=== PATIENT | male | born 1960 | race Caucasian/White ===

== ENCOUNTER → 2017-08-26 | Outpatient (CLI) | payer OTHER | LOC: BMCIMAGING 10:11 | PROVIDERS: ATTEND Emergency Medicine | DX: M50.322 Other cervical disc degeneration at C5-C6 level (principal); M99.71 Connective tissue and disc stenosis of intervertebral foramina of cervical region; M12.88 Other specific arthropathies, not elsewhere classified, other specified site ==

== ENCOUNTER 2017-09-07 11:15 | Emergency (ER) | payer OTHER ==
[2017-09-07 11:24] VITALS: TEMP 98.1
--- NOTE | 2017-09-07 11:41 | CPEKG ---
Heart Rate: 64 RR Interval: 938 P-R Interval: 152 QRSD Interval: 82 QT Interval: 396 QTC Interval: 409 P [place]: 8 QRS [place]: 7 T Wave [place]: 31 EKG Severity - OTHERWISE NORMAL ECG - EKG Impression: SINUS RHYTHM EKG Impression: MINIMAL ST ELEVATION, ANTERIOR LEADS Electronically Signed By: Christina Hoover 07-Sep-2017 14:58:41
--- NOTE | 2017-09-07 11:41 | CPEKG ---
Heart Rate: 64 RR Interval: 938 P-R Interval: 152 QRSD Interval: 82 QT Interval: 396 QTC Interval: 409 P [place]: 8 QRS [place]: 7 T Wave [place]: 31 EKG Severity - OTHERWISE NORMAL ECG - EKG Impression: SINUS RHYTHM EKG Impression: MINIMAL ST ELEVATION, ANTERIOR LEADS Electronically Signed By: Christina Hoover 07-Sep-2017 14:58:41
[2017-09-07 12:37] LABS: PLATELET COUNT 286 10^3/uL (150-400)
[2017-09-07] MEDS ORDERED: NS 1,000 ML IV ONE ×2 (13:17)
[2017-09-07] MEDS ORDERED: ONDANSETRON 4 MG/2 ML VIAL IVP ONE ×2 (13:17)
[2017-09-07] MEDS ORDERED: HYDROmorphONE/DILAUDID 1 MG/ML INJ IVP ONE ×2 (13:18)
--- NOTE | 2017-09-07 13:20 | EDPHY ---
HPI/HX/ROS/PE/MDM Narrative: CHIEF COMPLAINT: Headache, nausea, anxiety HISTORY OF PRESENT ILLNESS: This patient is a 56 year old male with history of recent C6-C7 pain complaining of headache and nausea onset early this morning upon waking. Two weeks ago, he woke up in bed with terrible pain in his neck. This radiates ( "zings") down his right arm multiple times per minute: initially to the elbow, now in the last few days to his fingers. He was diagnosed with a ruptured disc at C6-C7 by MRI. Followed by Dr. Sarmiento, professor of physical education, and Dr. Monet, neurosurgeon. He has noted he has been hypertensive since the incident. He has not been able to sleep well, and has felt "wound up" and more emotionally sensitive during this time. This morning, he developed a headache around 4:30am, primarily in the front and around his eyes. He noted building anxiety, lightheadedness, and nausea. He has had multiple new medications recently including gabapentin, lidocaine patches, Vicodin, and Medrol Dosepak. He took two ibuprofen this morning which relieved his headache slightly, but it has now returned. He followed up for an appointment with Dr. Monet but continued to feel very lightheaded and took a wheelchair to the emergency department. He denies any chest pain or shortness of breath. No speech difficulty, no numbness or weakness in extremities. He endorses a cough over the last two weeks. No fever, chills, chest pain, shortness of breath, palpitations, vomiting, diarrhea, urinary complaints. He has noted ongoing elevated blood pressures for the last 2 weeks and had a blood pressure of 200 systolic all in his physician's office. REVIEW OF SYSTEMS: Aside from elements discussed in the HPI, a comprehensive 10-point review of systems was reviewed and is negative. PAST MEDICAL HISTORY: Hyperlipidemia (Crestor), occasional irregular heartbeat , chronic urticaria. SOCIAL HISTORY: . at bedside. Lives in [place]. VITAL SIGNS: Reviewed by me. BP 201/111 GENERAL: Well-developed, well-nourished, resting comfortably in no respiratory distress. HEENT: Atraumatic. Eyes: No icterus, no injection. Mouth: moist mucous membranes. No erythema or lesions. Neck: tenderness to lower c-spine, more right-sided than midline. LUNGS: Clear to auscultation bilaterally, no wheezes, rhonchi or rales. CARDIAC: Regular rate and rhythm, no rubs, murmurs or gallops. ABDOMEN: Soft, nontender, nondistended, bowel sounds normal. BACK: No CVA tenderness. EXTREMITIES: No trauma. No edema. Range of motion is normal throughout. NEURO: Alert and oriented, cranial nerves are intact throughout, normal motor, normal sensation. SKIN: Warm and dry, no rash. PSYCHIATRIC: Normal mentation, emotionally labile. Patient burst into tears when I finished my exam. Portions of this note were transcribed by a medical corps officer. I personally performed a history, physical exam, medical decision making, and confirmed accuracy of information the transcribed note. ED Course: 12-LEAD EKG: Please see the full report in [facility]. My interpretation: Sinus rhythm, rate 64. Questionable ST T minimal elevations anteriorly 56 y/o male presents with headache, nausea, and anxiety this morning following neck pain ongoing for the last two weeks. He denies history of hypertension, but has been hypertensive since the incident. Exam reveals low c-spine tenderness right of midline. He is neurologically intact. IV established. Plan for labs including CBC, chemistries, Troponin. Plan to administer 1mg IV Dilaudid, 4mg IV Zofran, and 1L IV NS for symptom relief. Plan for EKG and chest x-ray. Chest x-ray negative for acute processes. Troponin negative. EKG shows sinus rhythm. Patient is initially elevated blood pressure did trend downward during his emergency department course. It was somewhat labile with readings as low as 140 is a over 80s. Headache was treated with pain meds and Zofran. Patient feels that a significant component of his illness is his insomnia is been going on since the last 2 weeks. I do not believe the patient is having hypertensive emergency or urgency. He has no evidence of end-organ damage on his EKG, troponin, or lab evaluation. I do not believe he needs CT scan his head. His symptoms may be related to medication side effect. 14:51 Reassessed patient. Headache and nausea have resolved. He feels much less anxious. His dizziness remains, but he believes this is related to narcotic medications. I discussed medication options in detail with the patient and his including his pain regimen, a sleep aid, or antihypertensive. Since the patient has only been hypertensive since the onset of his neck pain, plan to consult with his primary care physician, Dr. Rose, regarding his medications. He knows to follow up with her as well as his professor of physical education for continued evaluation and care. He plans to receive an injection rather than undergo surgery at this time. 15:[address] Patel, inspector outside steam distribution for Dr. Rose. She saw the patient last week as well. His blood pressure was elevated in clinic at that time, so she recommends he begin Zestoretic (lisinopril/HCTZ). Reassessed patient. He continues to feel improved. Plan to discharge home in good condition with prescription for Zestoretic and Ativan. Follow up and return precautions discussed. The patient and his are comfortable with this plan. MDM: Differential diagnosis for the patient's hypertension was considered including but not limited to essential hypertension, pain, medication effect, anxiety, intracranial pathology. After history was obtained, and the physical exam performed, a differential for headache was considered including, but not limited to, subarachnoid hemorrhage, migraine headache, tension headache. - Data Points Imaging: I viewed and interpreted images myself Laboratory Results: Laboratory Results 09/07/17 12:22 09/07/17 12:22 Medications Given: Discontinued Medications Acetaminophen (Tylenol) 650 mg PO EDNOW ONE Stop: 09/07/17 15:34 Last Admin: 09/07/17 15:42 Dose: 650 mg Hydrocodone Bitart/Acetaminophen ([place] 5/325) 1 tab PO EDNOW ONE Stop: 09/07/17 15:33 Last Admin: 09/07/17 15:43 Dose: 1 tab Lisinopril/HCTZ (Zestoretic) 1 ea PO DAILY MATEO Stop: 03/06/18 15:44 Last Admin: 09/07/17 16:19 Dose: 1 ea Hydromorphone HCl (Dilaudid) 1 mg IVP EDNOW ONE Stop: 09/07/17 13:19 Last Admin: 09/07/17 13:39 Dose: 1 mg Sodium Chloride (Ns) 1,000 mls @ 0 mls/hr IV ONCE ONE; Wide Open PRN Reason: Protocol Stop: 09/07/17 13:18 Last Admin: 09/07/17 13:37 Dose: 1,000 mls Ondansetron HCl (Zofran) 4 mg IVP EDNOW ONE Stop: 09/07/17 13:18 Last Admin: 09/07/17 13:39 Dose: 4 mg Ondansetron HCl (Zofran Odt) 4 mg PO EDNOW ONE Stop: 09/07/17 16:21 Last Admin: 09/07/17 16:22 Dose: 4 mg Ondansetron HCl (Zofran Odt 4 Mg Prepack#2) 1 btl TAKEHOME EDNOW ONE Stop: 09/07/17 16:21 Last Admin: 09/07/17 16:21 Dose: 1 btl General Time Seen by Provider: 09/07/17 12:55 Initial Vital Signs: Initial Vital Signs Temperature (C) 36.7 C 09/07/17 11:15 Heart Rate 84 09/07/17 11:15 Respiratory Rate 18 09/07/17 11:15 Blood Pressure 201/111 H 09/07/17 11:15 O2 Sat (%) 97 09/07/17 11:15 O2 Delivery Mode Room Air Allergies/Adverse Reactions: chloroquine Allergy (Verified 09/07/17 11:21) Home Medications: Medication Instructions Recorded "A Whole Lot Of Meds" 09/07/17 LORazepam [Ativan (*)] 1 mg PO Q12 PRN #10 tab 09/07/17 Lisinopril/Hydrochlorothiazide 1 each PO DAILY #30 tablet 09/07/17 [Zestoretic 20-12.5 mg Tablet] Departure - Departure Disposition: Home, Routine, Self-Care Clinical Impression: Elevated blood pressure reading Headache Qualifiers: Headache type: unspecified Headache chronicity pattern: acute headache Intractability: not intractable Qualified Code(s): R51 - Headache Condition: Good Instructions: Acute Headache (ED), Hypertension (ED) Additional Instructions: Take Zestoretic as prescribed for high blood pressure. I discussed this medication with Dr. Patel. Follow your medication regimen as we discussed until follow up with Dr. Rose or your neck specialists. I recommend you take: 1. Diclofenac (NSAID) twice a day. (Advil and Indomethacin are also non- steroidal antiinflammatories) 2. Flexeril (muscle relaxant) in the evenings as needed. 3. Lidocaine patch (topical relief) as needed. 4. Gabapentin (neuropathic pain relief) 300mg in the evening. 5. Tylenol 650mg every 4-6 hours as needed for headache. Do not take this if you are taking Hydrocodone. 6. Hydrocodone (narcotic pain reliever with acetaminophen) as prescribed as needed for severe pain. 7. Ativan as prescribed as needed for a sleep aid. Do not take this if you are taking Flexeril. Follow up with Dr. Sarmiento for further evaluation as planned. Return to the emergency department for severe pain, numbness, weakness, tingling , headache, difficulty walking or other worsening of condition. Referrals: Yoli Rose MD [Primary Care Provider] - As per Instructions Jona Sarmiento MD [Non Staff Provider (MD)] - As per Instructions Davie Monet MD [Medical Doctor] - As per Instructions Prescriptions: Lisinopril/Hydrochlorothiazide [Zestoretic 20-12.5 mg Tablet] 1 each PO DAILY # 30 tablet LORazepam [Ativan (*)] 1 mg PO Q12 PRN #10 tab PRN Reason: insomnia and anxiety
[2017-09-07] MEDS ORDERED: HYDROCODONE/APAP 5/325 TAB PO ONE ×2 (15:32)
[2017-09-07] MEDS ORDERED: ACETAMINOPHEN 325 MG TAB PO ONE ×2 (15:33)
[2017-09-07] MEDS ORDERED: LISINOPRIL/HCTZ 20/12.5MG 1 EA TAB PO SCH ×2 (15:45)
[2017-09-07] MEDS ORDERED: ONDANSETRON 4MG PREPACK#2 BTL TAKEHOME ONE ×4 (16:16→16:20)
[2017-09-07] MEDS ORDERED: ONDANSETRON DISINTEGRATING 4 MG TAB ONE ×2 (16:17)
[2017-09-07] MEDS ORDERED: ONDANSETRON DISINTEGRATING 4 MG TAB PO ONE ×2 (16:20)
[2017-09-07 16:27] VITALS: BP 185/100; PULSE 69; RESP 20; O2SAT 96
== END 2017-09-07 16:27 | disposition home or self-care (01) ==
DX: R51 Headache (principal); R03.0 Elevated blood-pressure reading, without diagnosis of hypertension; E86.9 Volume depletion, unspecified
CPT/HCPCS: 96374; J1170; J2405

== ENCOUNTER → 2018-04-16 | Outpatient (CLI) | payer OTHER ==
[~2018-04-16] MED LIST: GADOBUTROL 10 ML VIAL IVP ONE
== END ==
LOC: FIMAGING 07:51
PROVIDERS: ATTEND Urology
DX: N42.9 Disorder of prostate, unspecified (principal)
CPT/HCPCS: A9585

== ENCOUNTER → 2018-06-04 | Outpatient (CLI) | payer OTHER ==
[~2018-06-04] MED LIST changes: -GADOBUTROL 10 ML VIAL IVP ONE; +IOPAMIDOL (ISOVUE-300) 100 ML BTL ONE
== END ==
LOC: FIMAGING 10:30
PROVIDERS: ATTEND Urology
PROC: CP1Z1ZZ Planar Nuclear Medicine Imaging of Musculoskeletal System, All using Technetium 99m (Tc-99m) (ICD-10-PCS; principal; 2018-06-04)
DX: M19.019 Primary osteoarthritis, unspecified shoulder (principal); M17.11 Unilateral primary osteoarthritis, right knee; M19.071 Primary osteoarthritis, right ankle and foot; M19.072 Primary osteoarthritis, left ankle and foot; C61 Malignant neoplasm of prostate; N28.1 Cyst of kidney, acquired
CPT/HCPCS: 71120; 74177; 78306; A9503; Q9967

== ENCOUNTER → 2018-10-28 | Outpatient (CLI) | payer OTHER | LOC: FCPNEURO 22:49 | PROVIDERS: ATTEND Psychiatry & Neurology Sleep Medicine | DX: G47.39 Other sleep apnea (principal); G47.33 Obstructive sleep apnea (adult) (pediatric) ==